=== PATIENT | male | born 1995 ===

== ENCOUNTER → 2021-06-26 | Outpatient (CLI) | payer MEDICAID ==
[~2021-06-26] VITALS: Ht 193 cm; Wt 136.1 kg
== END | disposition home or self-care (01) ==
LOC: Rad HDHVI 10:05
PROVIDERS: ATTEND Internal Medicine Cardiovascular Disease
DX: I10 Essential (primary) hypertension (principal); E66.01 Morbid (severe) obesity due to excess calories; R00.0 Tachycardia, unspecified; E78.5 Hyperlipidemia, unspecified; R07.9 Chest pain, unspecified; Z82.49 Family history of ischemic heart disease and other diseases of the circulatory system
CPT/HCPCS: 93017